=== PATIENT | female | born 1945 | race Caucasian/White ===

== ENCOUNTER 2018-04-12 11:31 | Day surgery (SDC) | payer MEDICARE, BC ==
[~2018-04-12 11:31] MED LIST: Acetaminophen TAB* 325 MG PO PRN; Buffered Lidocaine 0.9% SYRIN* 5 ML/SYR SYRINGE INTRADERM ONE
[2018-04-12] MEDS ORDERED: Midazolam* 1 MG/ML 5 ML VIAL (5 MG) ONE (14:07)
[2018-04-12] MEDS ORDERED: fentaNYL* 50 MCG/ML 2 ML VIAL (100 MCG VIAL) ONE (14:36)
[2018-04-12 15:08] VITALS: BP 96/80
[2018-04-12] MEDS ORDERED: acetaZOLAMIDE TAB* 250 MG ONE (15:10)
[2018-04-12] MEDS ORDERED: Lidocaine 2% EPI 1:200000 MPF*10-20 ML VIAL ONE (15:10)
[2018-04-12] MEDS ORDERED: Neomycin/Polymy/Dex OPTH.SUSP* MAXITROL 0.1% 5 ML ONE (15:10)
[2018-04-12] MEDS ORDERED: Lidocaine 1%* 5 ML VIAL ONE (15:10)
[2018-04-12] MEDS ORDERED: Proparacaine 0.5% OPHTH.SOL* 15 ML BTL ONE (15:10)
[2018-04-12] MEDS ORDERED: Povidone Iodine 5% OPTH* 30 ML BTL ONE (15:10)
[2018-04-12] MEDS ORDERED: Cyclopentolate 1% OPTH.SOL* 2 ML BTL ONE (15:10)
[2018-04-12] MEDS ORDERED: Ketorolac 0.5% OPHTH (NF) 0.5 % 5 ML BTL ONE (15:10)
[2018-04-12] MEDS ORDERED: Phenylephrine 2.5% OPTH.SOL* 2 ML BTL ONE (15:10)
--- NOTE | 2018-04-13 07:29 | OP ---
DATE OF OPERATION: 04/12/18 - [facility] DATE OF : 43 SURGEON: Deniz Naidu M.D. PREOPERATIVE DIAGNOSIS: Cataract, left eye. POSTOPERATIVE DIAGNOSIS: Cataract, left eye. OPERATIVE PROCEDURE: Extracapsular cataract extraction with intraocular lens implant left eye. DESCRIPTION OF PROCEDURE: The patient was brought to the operating room after being given 1/2% Alcaine with epinephrine drops in the preoperative area. The eye was prepped and draped in the usual sterile fashion. Sterile drape and eyelid speculum were placed. Again, topical 1/2% Alcaine with epinephrine was given. A paracentesis incision was made at the 3 o'clock position with the No.75 blade. Clear cornea incision 2.2 x 2.2-mm was created at the 6 o'clock position starting at the anterior limbus using the 2.2-mm keratome. The anterior chamber was irrigated with 0.4 mL of 1% non-preservative intracameral lidocaine and filled with DisCoVisc. A capsulorrhexis was completed using the cystotome and the Utrata forceps. Hydrodissection was performed with balanced salt solution. The lens nucleus was removed with the Phacoemulsification handpiece without incident. Cortex was removed with the irrigation-aspiration handpiece. The capsular bag was re-inflated using DisCoVisc and a [id number] 2 diopter implant was inserted with a folding forceps. To accommodate the lens, incision was enlarged to 3.5 mm and one 10-0 nylon suture was placed in the incision at the end of procedure. The irrigation-aspiration handpiece was used to remove all residual DisCoVisc. The eye was refilled with balanced salt solution and the wound checked and found to be watertight. Topical Maxitrol drops were given. [id number]/[facility] #: [id number] [facility]ITALSil[facility]
== END 2018-04-12 15:18 | disposition home or self-care (01) ==
LOC: OREAST 11:31
PROVIDERS: ATTEND Specialist
DX: H25.812 Combined forms of age-related cataract, left eye (principal); H35.341 Macular cyst, hole, or pseudohole, right eye; H44.23 Degenerative myopia, bilateral; H43.813 Vitreous degeneration, bilateral; M06.9 Rheumatoid arthritis, unspecified; I10 Essential (primary) hypertension; E27.3 Drug-induced adrenocortical insufficiency; Z79.52 Long term (current) use of systemic steroids; F41.9 Anxiety disorder, unspecified
CPT/HCPCS: A9270-GY; J2250; J3010; V2632

== ENCOUNTER 2018-04-19 09:34 | Day surgery (SDC) | payer MEDICARE, BC ==
[2018-04-19] MEDS ORDERED: acetaZOLAMIDE TAB* 250 MG ONE (11:05)
[2018-04-19] MEDS ORDERED: Ketorolac 0.5% OPHTH (NF) 0.5 % 5 ML BTL ONE (11:06)
[2018-04-19] MEDS ORDERED: Lidocaine 1%* 5 ML VIAL ONE (11:06)
[2018-04-19] MEDS ORDERED: Lidocaine 2% EPI 1:200000 MPF*10-20 ML VIAL ONE (11:06)
[2018-04-19] MEDS ORDERED: Povidone Iodine 5% OPTH* 30 ML BTL ONE (11:06)
[2018-04-19] MEDS ORDERED: Cyclopentolate 1% OPTH.SOL* 2 ML BTL ONE (11:06)
[2018-04-19] MEDS ORDERED: Neomycin/Polymy/Dex OPTH.SUSP* MAXITROL 0.1% 5 ML ONE (11:06)
[2018-04-19] MEDS ORDERED: Phenylephrine 2.5% OPTH.SOL* 2 ML BTL ONE (11:06)
[2018-04-19] MEDS ORDERED: Proparacaine 0.5% OPHTH.SOL* 15 ML BTL ONE (11:06)
[2018-04-19] MEDS ORDERED: Midazolam* 1 MG/ML 2 ML VIAL (2 MG) ONE (11:39)
[2018-04-19] MEDS ORDERED: fentaNYL* 50 MCG/ML 2 ML VIAL (100 MCG VIAL) ONE (12:18)
[2018-04-19 12:42] VITALS: BP 124/78
--- NOTE | 2018-04-19 14:17 | OP ---
DATE OF OPERATION: 04/19/2018. DATE OF : 1945. SURGEON: Deniz Naidu M.D. PREOPERATIVE DIAGNOSIS: Cataract right eye. POSTOPERATIVE DIAGNOSIS: Cataract right eye. OPERATIVE PROCEDURE: Extracapsular cataract extraction with intraocular lens implant right eye. PROCEDURE: The patient was brought to the operating room after being given 1/2% Alcaine with epineph rine drops in the preoperative area. The eye was prepped and draped in the usual sterile fashion. S terile drape and eyelid speculum were placed. Again, topical 1/2% Alcaine with epinephrine was given . A paracentesis incision was made at the 9 o'clock position with the No.75 blade. Clear cornea inc ision 2.2 x 2.2-mm was created at the 12 o'clock position starting at the anterior limbus using the 2 .2-mm keratome. The anterior chamber was irrigated with 0.4 mL of 1% non-preservative intracameral l idocaine and filled with DisCoVisc. A capsulorrhexis was completed using the cystotome and the Utrat a forceps. Hydrodissection was performed with balanced salt solution. The lens nucleus was removed w ith the Phacoemulsification handpiece without incident. Cortex was removed with the irrigation-aspir ation handpiece. The capsular bag was re-inflated using DisCoVisc and an [id number] 5 implant was insert ed with the folding forceps. The incision was enlarged to 3.5 mm using a short cut blade to accommod ate the lens and one 10-0 Nylon suture was placed in the incision at the end of the case. The irriga tion-aspiration handpiece was used to remove all residual DisCoVisc. The eye was refilled with jaiden annabelle salt solution and the wound checked and found to be watertight. Topical Maxitrol drops were give n. [id number]/[facility] #: [id number]
== END 2018-04-19 12:50 | disposition home or self-care (01) ==
LOC: OREAST 09:34
PROVIDERS: ATTEND Specialist
DX: H25.811 Combined forms of age-related cataract, right eye (principal); H35.341 Macular cyst, hole, or pseudohole, right eye; H44.23 Degenerative myopia, bilateral; H43.813 Vitreous degeneration, bilateral; M06.9 Rheumatoid arthritis, unspecified; Z79.52 Long term (current) use of systemic steroids; F41.9 Anxiety disorder, unspecified
CPT/HCPCS: A9270-GY; J2250; J3010; V2632

== ENCOUNTER 2024-04-09 20:35 | Inpatient (IN) ==
[2024-04-09 21:59] LABS: ABS Lymphocytes 1.1 10^3/uL (1.0-4.8); ABS Monocytes 0.6 10^3/uL (0.0-0.9); ABS Neutrophils 3.7 10^3/uL (1.5-7.6); Eosinophil % 0.3 %; Hematocrit 42.1 % (35-45); Hemoglobin 14.6 g/dL (11.5-14.3); Lymphocyte % 20.4 %; Mean Corpuscular Hemoglobin 37.5 pg (27-33); Mean Corpuscular Hgb Conc 34.8 g/dL (31-36); Mean Corpuscular Volume 107.7 fL (80-97); Mean Platelet Volume 7.7 fL (7.5-11.2); Nucleated Red Blood Cells % 0.1 %/100WBC (0.0-0.8); Platelet Count 233 10^3/uL (150-450); Red Blood Count 3.91 10^6/uL (3.63-4.92); Red Cell Distribution Width 14.4 % (12-17); White Blood Count 5.4 10^3/uL (3.8-11.8)
[2024-04-09 23:00] LABS: Urine Appearance Turbid; Urine Bilirubin Negative (Negative); Urine Blood Negative (Negative); Urine Color Yellow; Urine Glucose Negative (Negative); Urine Ketones Negative (Negative); Urine Nitrite Negative (Negative); Urine Protein Negative (Negative); Urine Specific Gravity 1.012 (1.002-1.030); Urine Urobilinogen 2+ (Negative); Urine pH 6.5 (5.0-8.0)
[2024-04-09 23:04] LABS: Albumin 3.4 g/dL (3.2-5.2); Albumin/Globulin Ratio 1.3 (1-3); Creatinine, Serum 0.76 mg/dL (0.51-0.95); Globulin 2.7 g/dL (2-4); Magnesium 1.6 mg/dL (1.9-2.7); Potassium 3.4 mmol/L (3.5-5.0); Total Protein 6.1 g/dL (6.4-8.9); eGFR CKD-EPI 79.2 (>60)
[2024-04-09 23:06] LABS: Urine Bacteria 1+ /HPF (Absent); Urine Red Blood Cell Trace(0-2/hpf) /HPF (0-Trace); Urine Squamous Epithelial Cell Present /HPF (Absent); Urine White Blood Cell 2+(11-20/hpf) /HPF (0-Trace)
[2024-04-09 23:18] LABS: TSH Ultra Thyroid Stim Horm 2.13 mcIU/mL (0.34-5.60)
[2024-04-10] MEDS: cefTRIAXone 1 gm/50 mL D5W 1 GM/50 ML BAG IV ONE (02:03)
[2024-04-10] MEDS: Potassium Chlor 10 meq TAB PO ONE (04:46)
[2024-04-10] MEDS: Magnesium Sulfate 2 gm BAG 2 GM/50 ML BAG IVPB ONE (04:46)
[2024-04-10] MEDS: Enoxaparin 30 MG/0.3 ML SYR SUBCUT SCH (10:26)
[2024-04-10] MEDS: D5W 1/2 NS KCl 20 meq 1000 ml 1,000 ML IV SCH (15:05)
[2024-04-10 16:44] LABS: ABS Lymphocytes 1.2 10^3/uL (1.0-4.8); ABS Monocytes 0.6 10^3/uL (0.0-0.9); ABS Neutrophils 3.2 10^3/uL (1.5-7.6); ABS Nucleated RBC 0.01 10^3/ul; Eosinophil % 0.9 %; Hematocrit 38.6 % (35-45); Hemoglobin 13.4 g/dL (11.5-14.3); Lymphocyte % 24.1 %; Mean Corpuscular Hemoglobin 37.3 pg (27-33); Mean Corpuscular Hgb Conc 34.6 g/dL (31-36); Mean Corpuscular Volume 107.8 fL (80-97); Mean Platelet Volume 7.4 fL (7.5-11.2); Nucleated Red Blood Cells % 0.2 %/100WBC (0.0-0.8); Platelet Count 227 10^3/uL (150-450); Red Blood Count 3.58 10^6/uL (3.63-4.92); Red Cell Distribution Width 14.5 % (12-17); White Blood Count 5.1 10^3/uL (3.8-11.8)
[2024-04-10] MEDS ORDERED: Aspirin EC 325 mg TAB.EC PO ONE (16:47)
[2024-04-10 17:57] LABS: Calcium 8.7 mg/dL (8.6-10.3); Creatinine, Serum 0.74 mg/dL (0.51-0.95); Potassium 3.6 mmol/L (3.5-5.0); eGFR CKD-EPI 81.7 (>60)
[2024-04-10] MEDS: Gadoteridol (CONTRAST) 279.3 MG/ML 10 ML IV ONE (22:43)
[2024-04-11] MEDS: cefTRIAXone 1 gm/50 mL D5W 1 GM/50 ML BAG IV SCH (01:51)
[2024-04-11 05:50] LABS: ABS Eosinophils 0.1 10^3/uL (0.0-0.5); ABS Lymphocytes 1.4 10^3/uL (1.0-4.8); ABS Monocytes 0.6 10^3/uL (0.0-0.9); ABS Neutrophils 2.8 10^3/uL (1.5-7.6); Eosinophil % 1.6 %; Hematocrit 41.1 % (35-45); Hemoglobin 13.9 g/dL (11.5-14.3); Lymphocyte % 28.5 %; Mean Corpuscular Hemoglobin 36.6 pg (27-33); Mean Corpuscular Hgb Conc 33.9 g/dL (31-36); Mean Platelet Volume 7.5 fL (7.5-11.2); Nucleated Red Blood Cells % 0.1 %/100WBC (0.0-0.8); Platelet Count 252 10^3/uL (150-450); Red Cell Distribution Width 14.5 % (12-17); White Blood Count 4.8 10^3/uL (3.8-11.8)
[2024-04-11 05:53] LABS: Calcium 8.8 mg/dL (8.6-10.3); Creatinine, Serum 0.71 mg/dL (0.51-0.95); Magnesium 1.9 mg/dL (1.9-2.7); Phosphorus 2.6 mg/dL (2.5-5.0); Potassium 3.8 mmol/L (3.5-5.0); eGFR CKD-EPI 85.9 (>60)
[2024-04-11] MEDS: Aspirin EC 81 mg TAB.EC (enteric coated) PO SCH (08:44)
[2024-04-12] MEDS: hydrALAZINE 20 mg/ml 1 ML Vial IV IV SLOW PU PRN (02:32)
[2024-04-12 06:00] LABS: ABS Basophils 0.1 10^3/uL (0.0-0.1); ABS Monocytes 0.7 10^3/uL (0.0-0.9); ABS Neutrophils 4.3 10^3/uL (1.5-7.6); ABS Nucleated RBC 0.01 10^3/ul; Eosinophil % 0.4 %; Hematocrit 42.1 % (35-45); Hemoglobin 14.6 g/dL (11.5-14.3); Lymphocyte % 16.1 %; Mean Corpuscular Hemoglobin 37.2 pg (27-33); Mean Corpuscular Hgb Conc 34.6 g/dL (31-36); Mean Corpuscular Volume 107.5 fL (80-97); Mean Platelet Volume 7.2 fL (7.5-11.2); Nucleated Red Blood Cells % 0.1 %/100WBC (0.0-0.8); Platelet Count 252 10^3/uL (150-450); Red Blood Count 3.91 10^6/uL (3.63-4.92); Red Cell Distribution Width 14.5 % (12-17); White Blood Count 6.1 10^3/uL (3.8-11.8)
[2024-04-12 06:12] LABS: Creatinine, Serum 0.5 mg/dL (0.51-0.95); Magnesium 1.5 mg/dL (1.9-2.7); Potassium 3.5 mmol/L (3.5-5.0); eGFR CKD-EPI 94.8 (>60)
[2024-04-12] MEDS: Magnesium Sulf 4 GM/100 ML IV 4,000 MG/100 ML BAG IVPB ONE (09:10)
[2024-04-13] MEDS: cefTRIAXone 1 GM ONETIME (ADVAN) IVPB SCH (01:02)
[2024-04-13 06:08] LABS: ABS Lymphocytes 1.3 10^3/uL (1.0-4.8); ABS Monocytes 0.7 10^3/uL (0.0-0.9); ABS Neutrophils 3.8 10^3/uL (1.5-7.6); Eosinophil % 0.6 %; Hemoglobin 15.4 g/dL (11.5-14.3); Lymphocyte % 22.3 %; Mean Corpuscular Hemoglobin 37.1 pg (27-33); Mean Corpuscular Hgb Conc 34.2 g/dL (31-36); Mean Corpuscular Volume 108.5 fL (80-97); Mean Platelet Volume 7.3 fL (7.5-11.2); Platelet Count 224 10^3/uL (150-450); Red Blood Count 4.15 10^6/uL (3.63-4.92); Red Cell Distribution Width 14.5 % (12-17); White Blood Count 5.9 10^3/uL (3.8-11.8)
[2024-04-13 07:53] LABS: Calcium 9.2 mg/dL (8.6-10.3); Creatinine, Serum 0.68 mg/dL (0.51-0.95); Magnesium 2.1 mg/dL (1.9-2.7); Potassium 3.3 mmol/L (3.5-5.0)
[2024-04-13] MEDS: Potassium Chloride LIQUID 20 MEQ/15 ML LIQUID PO ONE (08:52)
[2024-04-13] MEDS ORDERED: Albumin Human 5% 12.5 GM/250 ML BTL IV ONE (11:00)
[2024-04-13] MEDS ORDERED: Lorazepam PYXIS KEY PRN (11:02)
[2024-04-13] MEDS: LORazepam 2 mg VIAL 1 ml IV PUSH PRN (11:22)
[2024-04-13] MEDS: Albumin Human 5% 12.5 GM/250 ML BTL IV ONE (11:23)
[2024-04-13] MEDS: NS 0.9% 1000 ml BAG 1,000 ML IV ONE (16:29)
[2024-04-13] MEDS: Rocuronium 50 mg VIAL 10 mg/ml 5 ml VIAL (50 mg) ONE ×2 (16:29)
[2024-04-13] MEDS: Albumin Human 5% 25 GM/500 ML BTL IV ONE (19:50)
[2024-04-13 22:30] LABS: Calcium 8.5 mg/dL (8.6-10.3); Creatinine, Serum 0.55 mg/dL (0.51-0.95); Magnesium 1.8 mg/dL (1.9-2.7); Phosphorus 2.9 mg/dL (2.5-5.0); Potassium 3.1 mmol/L (3.5-5.0); eGFR CKD-EPI 92.6 (>60)
[2024-04-13] MEDS: AMINO ACID INFUSION IV SCH ×2 (23:01→23:20)
[2024-04-13] MEDS: PPN IV SCH ×2 (23:01→23:20)
[2024-04-13] MEDS: D10W IV SCH ×2 (23:01→23:20)
[2024-04-13] MEDS: [UNRECOGNIZED DRUG - OTHER] IV SCH ×2 (23:01→23:20)
[2024-04-14] MEDS: KCL 20 MEQ/100 ML IVPREMIX 20 MEQ/100 ML BAG IV SCH (01:41)
[2024-04-14] MEDS: Magnesium Sulfate 2 gm BAG 2 GM/50 ML BAG IVPB ONE (01:43)
[2024-04-14 06:15] LABS: ABS Basophils 0.1 10^3/uL (0.0-0.1); ABS Eosinophils 0.1 10^3/uL (0.0-0.5); ABS Lymphocytes 1.6 10^3/uL (1.0-4.8); ABS Monocytes 0.8 10^3/uL (0.0-0.9); ABS Neutrophils 4.5 10^3/uL (1.5-7.6); Eosinophil % 1.5 %; Hemoglobin 13.6 g/dL (11.5-14.3); Mean Corpuscular Hemoglobin 37.2 pg (27-33); Mean Corpuscular Hgb Conc 34.9 g/dL (31-36); Mean Corpuscular Volume 106.5 fL (80-97); Mean Platelet Volume 7.7 fL (7.5-11.2); Platelet Count 246 10^3/uL (150-450); Red Blood Count 3.66 10^6/uL (3.63-4.92); Red Cell Distribution Width 14.7 % (12-17); White Blood Count 7.1 10^3/uL (3.8-11.8)
[2024-04-14 06:50] LABS: Calcium 8.2 mg/dL (8.6-10.3); Creatinine, Serum 0.45 mg/dL (0.51-0.95); Magnesium 2.4 mg/dL (1.9-2.7); Potassium 4.4 mmol/L (3.5-5.0); eGFR CKD-EPI 97.2 (>60)
[2024-04-14] MEDS: Acetaminophen IV 1 GM/100ML 1,000 MG/100 ML BAG IV PRN (09:55)
[2024-04-14] MEDS: Sodium Phosphate IV 15 MMOL in NS 0.9% 250 ml 250 ML IV ONE (11:50)
[2024-04-14] MEDS: TPN CENT\\PICC SCH (16:11)
[2024-04-14] MEDS: [UNRECOGNIZED DRUG - OTHER] CENT\\PICC SCH (16:11)
[2024-04-14] MEDS: AMINO ACID INFUSION CENT\\PICC SCH (16:11)
[2024-04-14] MEDS: WATER CENT\\PICC SCH (16:11)
[2024-04-14] MEDS: DEXTROSE CENT\\PICC SCH (16:11)
[2024-04-14 16:44] VITALS: BP 112/72
[2024-04-14 17:14] LABS: Urine Appearance Clear; Urine Bilirubin Negative (Negative); Urine Blood Negative (Negative); Urine Color Light-Yellow; Urine Glucose Negative (Negative); Urine Ketones Negative (Negative); Urine Nitrite Negative (Negative); Urine Protein Negative (Negative); Urine Specific Gravity 1.013 (1.002-1.030); Urine Urobilinogen Negative (Negative)
== END 2024-04-14 17:00 | disposition short-term general hospital (02) | DRG 690 ==
LOC: EDHOLD 20:35 → ED 20:35 → SUATTDRO 04-10 02:23 → ICU 04-10 06:22 → MED 04-10 06:48 → ICU 04-13 10:05
PROVIDERS: ADMIT Internal Medicine; ATTEND Internal Medicine Critical Care Medicine